=== PATIENT | male | born 1960 | race Caucasian/White ===

== ENCOUNTER → 2016-06-29 | Outpatient (CLI) | payer OTHER | LOC: BMCIMAGING 17:02 | PROVIDERS: ATTEND Internal Medicine | DX: J40 Bronchitis, not specified as acute or chronic (principal) ==

== ENCOUNTER → 2016-06-30 | Outpatient (CLI) | payer OTHER ==
[~2016-06-30] MED LIST: IOPAMIDOL (ISOVUE 370) 100 ML BTL IV ONE
== END ==
LOC: FIMAGING 14:54
PROVIDERS: ATTEND Internal Medicine
DX: J98.4 Other disorders of lung (principal); E04.1 Nontoxic single thyroid nodule; I25.10 Atherosclerotic heart disease of native coronary artery without angina pectoris
CPT/HCPCS: Q9967

== ENCOUNTER 2016-07-05 12:58 | Emergency (ER) | payer OTHER ==
[2016-07-05] MEDS ORDERED: NS 500 ML IV ONE (13:14)
--- NOTE | 2016-07-05 13:31 | EDPHY ---
H & P Stated Complaint: SOB, l neck pain HPI/ROS: CHIEF COMPLAINT: Shortness of breath HISTORY OF PRESENT ILLNESS: Patient complains of sudden onset of shortness of breath and lightheadedness. This happened this morning while standing outside. He just pain for a walk but no visitors exertion. It has been constant. He then noted of pain on the left side of his neck that developed. He felt that the pain in the neck was musculoskeletal as it has been ongoing lately. He has had no chest pain. He has been dizzy but no sensation of spinning. No change of symptoms with change of position of head or neck. No vomiting. No actual syncope. Went to urgent care and they sent him here by ambulance. He seen at time of arrival. No abnormalities on the pre-hospital 12 lead. No other associated complaints or modifying factors. Of note he does have a recent diagnosis of pneumonia on Tuesday and he does have polycythemia vera REVIEW OF SYSTEMS: Ten systems reviewed and are negative unless otherwise noted in the HPI PERTINENT MEDICAL HISTORY: Polycythemia vera, recent CAP diagnosis on augmentin EXAMINATION General Appearance: Alert, no distress Head: normocephalic, atraumatic Eyes: Pupils equal and round, no conjunctival pallor or injection ENT, Mouth: Mucous membranes moist. Uvula midline pain erythema edema. Neck: Normal inspection, supple, non-tender Respiratory: Lungs are clear to auscultation. No wheezing, rhonchi or crackles. Cardiovascular: Regular rate and rhythm. No murmur. Pulses intact distally. Gastrointestinal: Abdomen is soft and nontender Back: non-tender, no bony abnormalities Neurological: GCS 15. A&O, nonfocal, normal gait, normal steady gait Skin: Warm and dry, no rash Extremities: Nontender, no pedal edema Psychiatric: Mood and affect normal DIFFERENTIAL DIAGNOSES: Including but not limited to PE, ACS, heart failure, aortic stenosis, bronchitis , near syncope, pneumonia MDM: 1:15 p.m. Shortness of breath and near syncope. No chest pain of any kind. Awake and alert in no acute distress. Vital signs are stable. EKG, chest x-ray, laboratory studies are all pending. 1:30 p.m. I have re-evaluated the patient. He is resting comfortably in no acute distress. Labs, I EKG, chest x-ray are still pending. 2:15 p.m. Chest x-ray is clear and shows resolution pneumonia. Laboratory studies are normal including a negative troponin and BNP. D-dimer is negative. I have discussed the case with Dr. Godoy. He recommends stat Echocardiogram. He will evaluate the patient in the emergency department. 4:00 p.m. Patient has just finished his echocardiogram. Results are still pending. He is resting comfortably with no complaints of any kind at this time. 4:45 p.m. Echo returned as no acute finding. Normal ejection fraction. Normal valvular function. I discussed this with the patient. I have also discussed case with Dr. Godoy. He recommends a repeat troponin and the patient may be discharged home. 5:05 p.m. I discussed this with the patient. He agrees to stay for 2nd troponin. Second troponin has been drawn and then he will be discharged home if this is negative. SUPERVISION: Patient was evaluated in conjunction with the supervising physician. Please see their note for details. Source: Patient, Family, EMS Exam Limitations: No limitations - Personal History Current Tetanus/Diphtheria Vaccine: Yes Current Tetanus Diphtheria and Acellular Pertussis (TDAP): Yes - Medical/Surgical History Hx Asthma: No Hx Chronic Respiratory Disease: No Hx Diabetes: No Hx Cardiac Disease: Yes Hx Renal Disease: No Hx Cirrhosis: No Hx Alcoholism: No Hx HIV/AIDS: No Hx Splenectomy or Spleen Trauma: No Other PMH: Polycytepenia, ADD, HTN, PNA - Social History Smoking Status: Never smoked Constitutional: Initial Vital Signs Temperature (C) 97.3 F 07/05/16 12:58 Heart Rate 65 07/05/16 12:58 Respiratory Rate 14 07/05/16 12:58 Blood Pressure 148/91 H 07/05/16 12:58 O2 Sat (%) 99 07/05/16 12:58 O2 Delivery Mode Room Air Allergies/Adverse Reactions: clindamycin Allergy (Unverified 07/05/16 15:40) Home Medications: Medication Instructions Recorded AMOXICILLIN 07/05/16 Adderall 10 MG (*) 07/05/16 Amlodipine Besylate 07/05/16 Hydrea 500 mg (*) 07/05/16 Pantoprazole Sodium 07/05/16 Tamsulosin HCl 07/05/16 Medical Decision Making - Data Points Laboratory Results: Laboratory Results 07/05/16 13:40 07/05/16 13:40 Medications Given: Discontinued Medications Sodium Chloride (Ns) 500 mls @ 0 mls/hr IV ONCE ONE PRN Reason: As Directed Stop: 07/05/16 13:15 Last Admin: 07/05/16 14:08 Dose: 500 mls Departure - Departure Disposition: Home, Routine, Self-Care Clinical Impression: Near syncope, Dyspnea Condition: Good Instructions: Dyspnea (ED), Near Syncope (ED) Additional Instructions: Contact primary care physician in the morning. Continue with Cardiology referral. Return to ER for any chest pain, shortness of breath or syncope Referrals: Yassine Carmona MD [Primary Care Provider] - As per Instructions Hawk Del Angel MD [Medical Doctor] - As per Instructions
--- NOTE | 2016-07-05 13:39 | CPEKG ---
Heart Rate: 65 RR Interval: 923 P-R Interval: 168 QRSD Interval: 106 QT Interval: 432 QTC Interval: 450 P [place]: 67 QRS [place]: 13 T Wave [place]: 38 EKG Severity - NORMAL ECG - EKG Impression: SINUS RHYTHM Electronically Signed By: Favio Bustamante 08-Jul-2016 12:01:38
[2016-07-05 13:50] LABS: % IMMATURE GRANULYOCYTES 0.8 % (0.0-1.1); ADD DIFF? NO; ADD MORPH? YES; ADD SCAN? NO; ATYPICAL LYMPHOCYTE FLAG 10 (0-99); FRAGMENT RBC FLAG 20 (0-99); HEMOGLOBIN 14.1 g/dL (13.7-17.5); LEFT SHIFT FLG 0 (0-99); LIPEMIA HEMOLYSIS FLAG 80 (0-99); MEAN CELL HEMOGLOBIN 22.7 pg (27.9-34.1); MEAN CELL VOLUME 70.9 fL (81.5-99.8); MEAN PLATELET VOLUME 9.1 fL (8.7-11.7); PLATELET CLUMPS FLAG 0 (0-99); RED BLOOD CELL COUNT 6.21 10^6/uL (4.40-6.38)
[2016-07-05 13:54] LABS: PLATELET COUNT 857 10^3/uL (150-400); RED CELL DISTRIBUTION WIDTH 20.5 % (11.5-15.2)
[2016-07-05 14:07] LABS: INR 0.98 (0.83-1.16); PROTIME(PATIENT) 12.9 SEC (12.0-15.0)
[2016-07-05 14:08] LABS: APTT 29.4 SEC (23.0-38.0)
[2016-07-05 14:10] LABS: ANION GAP 13 mEq/L (8-16); CALCIUM 9.5 mg/dL (8.5-10.4); CARBON DIOXIDE 23 mEq/l (22-31); CHLORIDE 106 mEq/L (97-110); CREATININE 1.1 mg/dL (0.7-1.3); GLOMERULAR FILTRATION RATE > 60; GLUCOSE 84 mg/dL (70-100); POTASSIUM 4.1 mEq/L (3.5-5.2); SODIUM 142 mEq/L (134-144)
[2016-07-05 14:21] LABS: TROPONIN I < 0.012 ng/mL (0-0.034)
[2016-07-05 14:32] LABS: HYPOCHROMIA 2+; MICROCYTES 2+; PLATELET ESTIMATE INCREASED (ADEQ)
[2016-07-05 16:04] VITALS: TEMP 97.5; O2SAT 98
--- NOTE | 2016-07-05 16:47 | ECHO ---
[id number] + + [address] : : [place] [address] : : [phone] + + Adult Echocardiographic Report + --+ :Name: SKYLER MASSEY SStudy Date: 07/05/2016 03:41 PM : : Hospital Admission Number: [id number] Location: ER: :: 1960 Gender: Male : :Age: 56 yrs Race: WH : :Reason For Study: Dyspnea/near syncope : :History: Polycythemia : + --+ MMode/2D Measurements \T\ Calculations IVSd: 0.50 cm LVIDd: 4.6 cm FS: 52.6 % Ao root diam: LVPWd: 0.57 cm LVIDs: 2.2 cm EDV(Teich): 3.8 cm 99.3 ml LA dimension: ESV(Teich): 3.6 cm 16.2 ml EF(Teich): 83.7 % LVLd ap4: 8.6 cm SV(MOD-sp4): EDV(MOD-sp4): 63.0 ml 92.0 ml LVLs ap4: 7.1 cm ESV(MOD-sp4): 29.0 ml EF(MOD-sp4): 68.5 % Normal Measurement Values: + + :LVIDd (3.5-5.7cm) IVSd (0.6-1.1cm) LVPWd (0.6-1.1cm) Aortic Root (2.0-3.7cm)Left Atrium (1.5-4.0cm): :LV Vol(d) (76-115ml) LV Vol(s) (29-48ml) Ejec Fraction (50-65%)PV [place] (0.6- 1.2m/s) TV [place] (0.4-1.0m/s) : :MV E [place] (0.8-1.0m/s)MV A [place] (0.3-1.0m/s)LVOT [place] (0.7-1.2m/s) Asc Ao [place] ( 0.9-1.8m/s) : + + Doppler Measurements \T\ Calculations MV E max everette: 65.2 cm/sec Ao V2 max: 122.0 cm/sec MV A max everette: 78.0 cm/sec Ao max P.0 mmHg MV E/A: 0.84 Left Ventricle The left ventricle is normal in size. There is normal left ventricular wall thickness. Left ventricular systolic function is normal. Ejection Fraction = 70-75%. There is Doppler evidence for diastolic dysfunction. No regional wall motion abnormalities noted. Right Ventricle The right ventricle is normal in size and function. Atria The left atrial size is normal. Right atrial size is normal. The interatrial septum is intact with no evidence for an atrial septal defect. Mitral Valve The mitral valve is normal in structure and function. There is no evidence of mitral valve prolapse. There is no mitral valve stenosis. Tricuspid Valve Normal tricuspid valve. There is trace tricuspid regurgitation. Aortic Valve The aortic valve is trileaflet. The aortic valve opens well. Mild Aortic Valve Calcification. There is no aortic stenosis. Trace aortic regurgitation. Pulmonic Valve The pulmonic valve is normal in structure and function. There is no pulmonic valvular regurgitation. Great Vessels The aortic root is normal size. Pericardium/Pleural There is no pericardial effusion. Conclusion A complete two-dimensional transthoracic echocardiogram was performed (2D, M-mode, Doppler and color flow Doppler). Left ventricular systolic function is normal. Ejection Fraction = 70-75%. There is Doppler evidence for diastolic dysfunction. Normal wall motion. Mild aortic sclerosis. Trace aortic regurgitation. There is trace tricuspid regurgitation. Final Reading Physician: Benjamin Watkins signed on 07/05/2016 04:45 PM Ordering Physician: Travis Mora Performed By: Birdie Lin, CS
[2016-07-05 17:56] VITALS: BP 124/78; PULSE 64; RESP 16
== END 2016-07-05 17:56 | disposition home or self-care (01) ==
LOC: EDUNIT#
DX: R06.00 Dyspnea, unspecified (principal); R55 Syncope and collapse; I10 Essential (primary) hypertension

== ENCOUNTER → 2016-07-16 | Outpatient (CLI) | payer OTHER | LOC: BMCIMAGING 15:11 | PROVIDERS: ATTEND Internal Medicine Endocrinology, Diabetes & Metabolism | DX: E04.1 Nontoxic single thyroid nodule (principal) | CPT/HCPCS: 76536-PO ==

== ENCOUNTER 2016-09-15 13:15 | Day surgery (SDC) | payer OTHER ==
[2016-09-15] MEDS ORDERED: ceFAZolin 2 GM/DEXTROSE 100 ML IV ONE (13:46)
[2016-09-15] MEDS ORDERED: OXYMETAZOLINE 30 ML NASAL SPRAY ONE (14:05)
[2016-09-15] MEDS ORDERED: LIDOCAINE 1% 2 ML INJ ID PRN (14:06)
[2016-09-15] MEDS ORDERED: LR 1,000 ML IV ONE (14:06)
[2016-09-15] MEDS ORDERED: MIDAZOLAM 2 MG/2 ML VIAL IVP ONE (14:56)
--- NOTE | 2016-09-15 15:00 | PDANEPAE ---
ANE History of Present Illness NECK MASS, S/F DL AND NECK BIOPSY ANE Past Medical History - Cardiovascular History Hx Hypertension: Yes Hx Arrhythmias: No Hx Chest Pain: No Hx Coronary Artery / Peripheral Vascular Disease: No Hx CHF / Valvular Disease: No Hx Palpitations: No Cardiovascular History Comment: on Chol Rx x 1 mo. Stress test and 30 day heart monitor done. Polycythemia - Pulmonary History Hx COPD: No Hx Asthma/Reactive Airway Disease: No Hx Recent Upper Respiratory Infection: No Hx Oxygen in Use at Home: No Hx Sleep Apnea: Yes Sleep Apnea Screening Result - Last Documented: Positive Pulmonary History Comment: recent pneumonia late spring-expectorated bloody sputum. Dx w/MACIEL if supine-sleeps w/2 tennis ball/pack at his back. - Neurologic History Hx Cerebrovascular Accident: No Hx Seizures: No Hx Dementia: No - Endocrine History Hx Diabetes: No Endocrine History Comment: polycythemia vera, hydroxyurea treatment - Renal History Hx Renal Disorders: Yes Renal History Comment: takes tamsulosin - Liver History Hx Hepatic Disorders: No - Neurological & Psychiatric Hx Hx Neurological and Psychiatric Disorders: Yes Neurological / Psychiatric History Comment: ADD- on Rx - Cancer History Cancer History Comment: polycythemia tx w/Hydroxyurea - Congenital Disorder History Hx Congenital Disorders: No - GI History Hx Gastrointestinal Disorders: Yes Gastrointestinal History Comment: GERD - Other Health History Other Health History: V.C. and neck (thyroid) mass - Chronic Pain History Chronic Pain: No - Surgical History Prior Surgeries: inguinal hernia repair age 14. repair of bicep tendon 2014 ANE Review of Systems - Exercise capacity METS (RN): 4 METS ANE Patient History - Allergies Allergies/Adverse Reactions: clindamycin Allergy (Verified 08/30/16 13:54) Rash sulfite Allergy (Verified 08/30/16 13:55) Other-Enter Comments - Home Medications Home Medications: Adderall 10 MG (*) 07/05/16 [Last Taken 09/15/16 05:45] Amlodipine Besylate 07/05/16 [Last Taken 09/15/16 05:45] Hydrea 500 mg (*) 07/05/16 [Last Taken 09/14/16] Pantoprazole Sodium 07/05/16 [Last Taken 09/15/16 05:45] Tamsulosin HCl 07/05/16 [Last Taken 09/15/16 05:45] Aspirin 81mg (*) 08/30/16 [Last Taken 09/10/16] - NPO status NPO Since - Liquids (Date): 09/15/16 NPO Since - Liquids (Time): 08:00 (coffee black at 0830) NPO Since - Solids (Date): 09/14/16 NPO Since - Solids (Time): 21:00 - Anes Hx Anes Hx: no prior problems - Smoking Hx Smoking Status: Never smoked - Alcohol Use Alcohol Use: Rarely ANE Labs/Vital Signs - Vital Signs Blood Pressure: 131/96 Heart Rate: 52 Respiratory Rate: 18 O2 Sat (%): 99 Height: 175.26 cm Weight: 81.647 kg ANE Physical Exam - Airway Neck exam: FROM Mallampati Score: Class 1 Mouth exam: normal dental/mouth exam - Pulmonary Pulmonary: no respiratory distress - Cardiovascular Cardiovascular: regular rate and rhythym - ASA Status ASA Status: II ANE Anesthesia Plan Anesthesia Plan: general endotracheal anesthesia (R/B/A explained and agrees to proceed)
--- NOTE | 2016-09-15 15:21 | PDGENHP ---
History & Physical Chief Complaint: Vocal cord mass, Left neck mass History of Present Illness: Cord mass found on endoscopy. Neck mass found incidentally on CT angio chest and U/S neck confirmed findings. Pertinent Past, Social, Family History: PMH - CAD, hyperlipidemia, HTN, Polycythemia treated with hydroxyurea, MACIEL Relevant Physical Exam: A&O, NAD. OP clear. Neck unremarkable without palpable mass. CN 2-12 grossly intact Cardiorespiratory Assessment: CTA. Assessment: Appropriate for OR neck mass biopsy and vocal cord biopsy.
[2016-09-15] MEDS ORDERED: REMIFENTANIL HCL 1 MG VIAL ONE (15:25)
[2016-09-15] MEDS ORDERED: fentaNYL 100 MCG/2 ML INJ ONE (15:25)
[2016-09-15] MEDS ORDERED: PROPOFOL/EMULSION 500 MG/50 ML BOTTLE IV ONE (15:26)
[2016-09-15] MEDS ORDERED: LIDOCAINE 2% 100 MG/5 ML SYR ONE (15:28)
[2016-09-15] MEDS ORDERED: LIDOCAINE HCL 160 MG/4 ML LTA KIT TP ONE (15:28)
[2016-09-15] MEDS ORDERED: DEXAMETHASONE 4 MG/ML VIAL ONE (15:28)
[2016-09-15] MEDS ORDERED: ONDANSETRON 4 MG/2 ML VIAL ONE (15:28)
[2016-09-15] MEDS ORDERED: PHENYLEPHRINE HCL 100 MCG/ML SYR ONE ×2 (15:42→16:26)
[2016-09-15] MEDS ORDERED: LIDOCAINE 1% 300 MG/30 ML SDV ONE (15:47)
[2016-09-15] MEDS ORDERED: LIDO/EPI 1% **Not for Epidural 20 ML MDV ONE (15:47)
[2016-09-15] MEDS ORDERED: epHEDrine SULFATE 10 MG/ML SYR ONE (16:35)
[2016-09-15] MEDS ORDERED: PROMETHAZINE HCL 25 MG/ML INJ IVP PRN (16:48)
[2016-09-15] MEDS ORDERED: ONDANSETRON 4 MG/2 ML VIAL IVP PRN (16:48)
[2016-09-15] MEDS ORDERED: LR 500 ML IV PRN (16:48)
[2016-09-15] MEDS ORDERED: METOCLOPRAMIDE 10 MG/2 ML VIAL IVP PRN (16:48)
[2016-09-15] MEDS ORDERED: ACETAMINOPHEN 500 MG TAB PO PRN (16:48)
[2016-09-15] MEDS ORDERED: HYDROCODONE/APAP 5/325 TAB PO PRN (16:48)
[2016-09-15] MEDS ORDERED: ALBUTEROL 3 ML DEYVIAL IH PRN (16:48)
[2016-09-15] MEDS ORDERED: OXYCODONE/APAP 5/325 TAB PO PRN (16:48)
[2016-09-15] MEDS ORDERED: NALOXONE HCL 0.4 MG/ML INJ IVP PRN (16:48)
[2016-09-15] MEDS ORDERED: MEPERIDINE 25 MG/ML SYR IVP PRN (16:48)
[2016-09-15] MEDS ORDERED: DEXAMETHASONE 4 MG/ML VIAL IVP PRN (16:48)
[2016-09-15] MEDS ORDERED: LABETALOL HCL 50 MG/10 ML SYR IVP PRN (16:48)
[2016-09-15] MEDS ORDERED: fentaNYL 100 MCG/2 ML INJ IVP PRN ×2 (16:48)
--- NOTE | 2016-09-15 17:06 | POSTOPPROG ---
Post Op Note Date of Operation: 09/15/16 Surgeon: Torrey Elias Anesthesiologist: Arnol Anesthesia: GET(General Endotracheal) Pre-op Diagnosis: L vocal fold mass, L paratracheal neck mass Post-op Diagnosis: L vocal fold mass, L paratracheal neck mass Indication: L vocal fold mass, L paratracheal neck mass Procedure: Direct microlaryngoscopy, excisional biopsy L paratracheal neck mass Findings: Normal vocal folds. 3cm L paratracheal mass Inf/Abcess present in the surg proc area at time of surgery?: No Depth: Deep Incisional (Fascial) EBL: Minimal Complications: NONE Specimen(s): Left paratracheal neck mass.
[2016-09-15 17:26] VITALS: BP 119/74; PULSE 64; RESP 15; TEMP 96.8
[2016-09-15 17:31] VITALS: O2SAT 96
--- NOTE | 2016-10-05 04:55 | GOP ---
[f rep st] OPERATIVE REPORT DATE OF OPERATION: 09/15/2016 SURGEON: Torrey Elias MD ANESTHESIA: General. PREOPERATIVE DIAGNOSIS: Left vocal fold mass, left paratracheal neck mass. POSTOPERATIVE DIAGNOSIS: Left vocal fold mass, left paratracheal neck mass. PROCEDURE PERFORMED: Direct microlaryngoscopy, excisional biopsy of left paratracheal mass. FINDINGS: A 3 cm lobulated left paratracheal mass. No evidence of mass on direct microlaryngoscopy . SPECIMENS: Left paratracheal mass. ESTIMATED BLOOD LOSS: Minimal. 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 During workup for lung pathology, he was incidentally found to have a left paratracheal mass on CT scan. Given his history and findings, he was determined to be an appropriate candidate for the abo ve-stated procedures. The risks, benefits, and alternatives to the procedures were explained at [facility] to the patient who stated he understood and wished to go forward with the procedures. DESCRIPTION OF PROCEDURE: Patient was brought to the operating room by Anesthesiology and placed on the operating table. Once the appropriate level of anesthesia was achieved, the operating table wa s turned 90 degrees, and the patient was prepped and draped for the direct laryngoscopy microlaryngo scopy. A Superior tooth guard was placed. The oral cavity and posterior oropharynx were palpated f or mass. None was found. A Dedo laryngoscope was then placed atraumatically into the oral cavity. Visual inspection of the posterior oral cavity and oropharynx were completed. The laryngoscope was then passed into the hypopharynx for good visualization of the larynx. The postcricoid region was visualized, as well as structures of the larynx and hypopharynx that included the base of tongue, va llecula, bilateral piriform sinuses, epiglottis, aryepiglottic fold, true and false vocal folds. Once the area of concern of the left true vocal fold was localized, the laryngoscope was suspended w ith a Lewy bar on a Heath stand. The binocular operating microscope was brought onto the surgical fi eld. Complete inspection of bilateral vocal fold was completed using the microscope. False vocal f olds were also inspected. As noted above, no lesion was found. Mucosa appeared smooth and healthy. The laryngoscope was unsuspended and withdrawn. The tooth guard was removed. The patient was und raped and then re-prepped and draped for the neck excision. 1% lidocaine with 1:100,000 epinephrine was injected into the intended incision site that was 2 fing erbreadths above the manubrium. The incision was 3 cm and placed with an a neck crease. This was j ust to the left of midline. Incision was created with a 15 blade. And dissection continued with Sudhakar vie electrocautery through the platysma. Subplatysmal flaps were elevated both superiorly and infer iorly. The strap muscles, including the sternocleidomastoid, were localized and lateralize to the l eft. Incision continued vertically along the midline until the inferior thyroid gland lobe was enco untered. Dissection continued inferiorly along the left lateral aspect of the trachea. Dissection continued slightly into the mediastinum. The mass was then localized. As the capsule was encounter ed, a pericapsular dissection was completed. There were only mild vascular contributors to the mass . Dissection continued with clean planes and in a pericapsular fashion. It was delivered and ball and sent for pathology. The surgical bed was irrigated with copious normal saline. The surgical bed was inspected for bleed ing; none was found. The strap muscles were brought back to midline and reapproximated using a sing le [id number] 3-0 chromic suture. The platysma was then reapproximated using interrupted deep 3-0 chromic sutures. The subcutaneous tissues were reapproximated using interrupted deep 3-0 chromi c sutures. Skin was reapproximated with Dermabond. The patient tolerated the procedure well and was extubated in the operating room prior to being souza sferred in good condition to the postanesthesia care unit. COMPLICATIONS: None. /[id number]/MODL
== END 2016-09-15 18:12 | disposition home or self-care (01) ==
LOC: FSGY 13:15
PROVIDERS: ATTEND Otolaryngology
DX: D34 Benign neoplasm of thyroid gland (principal); I25.10 Atherosclerotic heart disease of native coronary artery without angina pectoris; E78.5 Hyperlipidemia, unspecified; I10 Essential (primary) hypertension; G47.33 Obstructive sleep apnea (adult) (pediatric)
CPT/HCPCS: J0171; J0690; J1100; J2001; J2250; J2370; J2405; J2704; J3010

== ENCOUNTER → 2016-10-29 | Outpatient (CLI) | payer OTHER | LOC: BMCIMAGING 16:29 | PROVIDERS: ATTEND Internal Medicine | DX: R91.8 Other nonspecific abnormal finding of lung field (principal) ==

== ENCOUNTER → 2017-05-05 | Outpatient (CLI) | payer OTHER | LOC: BMCIMAGING 08:07 | PROVIDERS: ATTEND Internal Medicine | DX: R05 Cough (principal) ==

== ENCOUNTER 2017-07-18 10:45 | Emergency (ER) | payer OTHER ==
--- NOTE | 2017-07-18 11:09 | CPEKG ---
Heart Rate: 56 RR Interval: 1071 P-R Interval: 180 QRSD Interval: 104 QT Interval: 428 QTC Interval: 414 P [place]: 59 QRS [place]: -8 T Wave [place]: 32 EKG Severity - NORMAL ECG - EKG Impression: SINUS RHYTHM Electronically Signed By: Pierre Pavon 18-Jul-2017 14:26:31
--- NOTE | 2017-07-18 11:39 | EDPHY ---
H & P Stated Complaint: cp Time Seen by Provider: 07/18/17 11:30 HPI/ROS: CHIEF COMPLAINT: Chest pain HISTORY OF PRESENT ILLNESS: The patient presents to ED department with 2 days of vague atypical nonexertional chest pain. The patient has a history of polycythemia vera currently treated with hydroxyurea. The patient has a history of coronary calcifications but has had a negative nuclear stress test within the past year. He denies any history of exertional chest pain. The patient is currently asymptomatic. He denies asymmetric calf pain or swelling. The patient denies pleuritic chest pain. Given the patient's concern about his known prior coronary calcifications he came to the ED for evaluation today. REVIEW OF SYSTEMS: A comprehensive 10 point review of systems is otherwise negative aside from elements mentioned in the history of present illness. Source: Patient - Personal History Current Tetanus/Diphtheria Vaccine: Yes Current Tetanus Diphtheria and Acellular Pertussis (TDAP): Yes - Medical/Surgical History Hx Asthma: No Hx Chronic Respiratory Disease: No Hx Diabetes: No Hx Cardiac Disease: Yes Hx Renal Disease: No Hx Cirrhosis: No Hx Alcoholism: No Hx HIV/AIDS: No Hx Splenectomy or Spleen Trauma: No Other PMH: Polycytepenia, ADD, HTN, PNA - Social History Smoking Status: Never smoked - Physical Exam Exam: General Appearance: Alert, no distress Eyes: Pupils equal and round no pallor or injection ENT, Mouth: Mucous membranes moist Respiratory: There are no retractions, lungs are clear to auscultation Cardiovascular: Regular rate and rhythm Gastrointestinal: Abdomen is soft and nontender, no masses, bowel sounds normal Neurological: A&O, normal motor function, normal sensory exam, normal cranial nerves Skin: Warm and dry, no rashes Musculoskeletal: Neck is supple nontender Extremities: symmetrical, full range of motion Constitutional: Initial Vital Signs Temperature (C) 36.3 C 07/18/17 10:58 Heart Rate 61 07/18/17 10:58 Respiratory Rate 16 07/18/17 10:58 Blood Pressure 157/91 H 07/18/17 10:58 O2 Sat (%) 99 07/18/17 10:58 O2 Delivery Mode Room Air Allergies/Adverse Reactions: clindamycin Allergy (Verified 07/18/17 10:56) Rash sulfite Allergy (Verified 07/18/17 10:56) Other-Enter Comments Home Medications: Medication Instructions Recorded Adderall 10 MG (*) 07/05/16 Amlodipine Besylate 07/05/16 Hydrea 500 mg (*) 07/05/16 Pantoprazole Sodium 07/05/16 Tamsulosin HCl 07/05/16 Aspirin 81mg (*) 08/30/16 Albuterol 07/18/17 Atorvastatin Calcium 07/18/17 Medical Decision Making - Diagnostics EKG Interpretation: EKG: Complete interpretation has been separately recorded in the [employer] archive. Summary impression: Sinus rhythm, rate 56 Imaging Results: Imaging Impressions Chest X-Ray 07/18/17 11:06 Impression: May 05, 2017, July 05, 2016 Findings: Lungs clear. Heart normal. No pneumothorax or pleural effusion. There is no mass or adenopathy. The skeleton is unremarkable. There is chronic degenerative spurring in the mid and lower thoracic spine. EKG leads overlie the chest. Impression: No source for chest pain identified. ED Course/Re-evaluation: The patient presents to the ED with a 2 day history of atypical chest pain. The patient's EKG demonstrates no evidence of ischemia and his troponin is normal. The patient does have a history of coronary calcifications and does understand that we cannot fully exclude coronary artery disease. Patient was offered admission hospital for observation versus follow-up with Cardiology. He prefers to follow up with Cardiology at this point time. The patient does understand return to the ED immediately for worsening chest pain, shortness of breath or other concerns. The patient underwent serial examinations in the ED over a 2 hr period. At 1: 00 p.m. He continues to be asymptomatic. The patient has seen Dr. Del Angel from Cardiology in the past. He has been given the contact number for [facility] at his request. Differential Diagnosis: Differential diagnosis considered includes gastroesophageal reflux disease, coronary artery disease, myocardial infarction, dehydration - Data Points Laboratory Results: Laboratory Results 07/18/17 11:32 07/18/17 11:32 07/18/17 07/18/17 07/18/17 11:37 11:32 11:32 WBC 7.47 10^3/uL 10^3/uL (3.80-9.50) RBC 5.70 10^6/uL 10^6/uL (4.40-6.38) Hgb 15.4 g/dL g/dL (13.7-17.5) Hct 47.2 % % (40.0-51.0) MCV 82.8 fL fL (81.5-99.8) MCH 27.0 pg L pg (27.9-34.1) MCHC 32.6 g/dL g/dL (32.4-36.7) RDW 14.5 % % (11.5-15.2) Plt Count 372 10^3/uL 10^3/uL (150-400) MPV 9.4 fL fL (8.7-11.7) Neut % (Auto) 63.1 % % (39.3-74.2) Lymph % (Auto) 24.9 % % (15.0-45.0) Sully % (Auto) 9.4 % % (4.5-13.0) Eos % (Auto) 1.6 % % (0.6-7.6) Baso % (Auto) 0.7 % % (0.3-1.7) Nucleat RBC Rel Count 0.0 % % (0.0-0.2) Absolute Neuts (auto) 4.72 10^3/uL 10^3/uL (1.70-6.50) Absolute Lymphs (auto) 1.86 10^3/uL 10^3/uL (1.00-3.00) Absolute Monos (auto) 0.70 10^3/uL 10^3/uL (0.30-0.80) Absolute Eos (auto) 0.12 10^3/uL 10^3/uL (0.03-0.40) Absolute Basos (auto) 0.05 10^3/uL 10^3/uL (0.02-0.10) Absolute Nucleated RBC 0.00 10^3/uL 10^3/uL (0-0.01) Immature Gran % 0.3 % % (0.0-1.1) Immature Gran # 0.02 10^3/uL 10^3/uL (0.00-0.10) Sodium 143 mEq/L mEq/L (135-145) Potassium 4.2 mEq/L mEq/L (3.3-5.0) Chloride 103 mEq/L mEq/L (97-110) Carbon Dioxide 25 mEq/l mEq/l (22-31) Anion Gap 15 mEq/L mEq/L (8-16) BUN 17 mg/dL mg/dL (7-23) Creatinine 0.9 mg/dL mg/dL (0.7-1.3) Estimated GFR > 60 Glucose 91 mg/dL mg/dL (70-100) Calcium 9.5 mg/dL mg/dL (8.5-10.4) POC Troponin I 0.00 ng/mL ng/mL (0.00-0.08) Point of Care Test Results: Chemistry 07/18/17 11:37 POC Troponin I 0.00 ng/mL ng/mL (0.00-0.08) Departure - Departure Disposition: Home, Routine, Self-Care Clinical Impression: Chest pain Condition: Good Instructions: Chest Pain (ED) Additional Instructions: 1. Based upon the testing done in the Emergency Department today we see no evidence of a heart attack. 2. We are unable to fully exclude coronary artery disease based upon the testing available in the Emergency Department. 3. For this reason, we would like you to be seen by cardiology for consideration of additional testing within the next 3 days. 4. Please contact the merchandise associate you have been referred to schedule this appointment as soon as possible. Their offices are typically open from 8:30am- 5pm M-F. 5. Please return to the Emergency Department immediately for any recurrent chest pain, difficulty breathing or other concerns. Referrals: Francisca Gooden MD [Medical Doctor] - As per Instructions
[2017-07-18 11:45] LABS: PLATELET COUNT 372 10^3/uL (150-400)
[2017-07-18 13:27] VITALS: BP 138/88
== END 2017-07-18 13:28 | disposition home or self-care (01) ==
DX: R07.9 Chest pain, unspecified (principal); I10 Essential (primary) hypertension; Z79.82 Long term (current) use of aspirin
CPT/HCPCS: 84484-PO

== ENCOUNTER 2017-10-31 19:18 | Emergency (ER) | payer OTHER ==
--- NOTE | 2017-10-31 19:26 | EDPHY ---
H & P Time Seen by Provider: 10/31/17 19:22 HPI/ROS: CHIEF COMPLAINT: Presyncope HISTORY OF PRESENT ILLNESS: The patient presents to the ED with presyncope. The patient had a lipoma resected from his right flank at the outpatient surgery center today. This was complicated by a immediate postoperative hematoma which required further washout. The patient was sent home with a pressure dressing. This evening he developed increasing pain, lightheadedness and diaphoresis. He checked his blood pressure and it was 100/50 with a heart rate in the 60s prompting his visit to the emergency department. The patient does have a history of polycythemia and takes hydroxyurea for this condition. He does have thrombocytosis per his report. Patient reports that the blood loss was approximately 100 mL. He describes a lipoma approximately 15 cm by 8 cm in size which was excised. REVIEW OF SYSTEMS: A comprehensive 10 point review of systems is otherwise negative aside from elements mentioned in the history of present illness. Source: Patient Exam Limitations: No limitations - Medical/Surgical History Hx Asthma: No Hx Chronic Respiratory Disease: No Hx Diabetes: No Hx Cardiac Disease: Yes Hx Renal Disease: No Hx Cirrhosis: No Hx Alcoholism: No Hx HIV/AIDS: No Hx Splenectomy or Spleen Trauma: No Other PMH: Polycythemia, ADD, HTN, PNA - Family History Significant Family History: No pertinent family hx - Social History Smoking Status: Never smoked - Physical Exam Exam: General Appearance: Alert, diaphoretic Eyes: Pupils equal and round no pallor or injection ENT, Mouth: Mucous membranes moist Respiratory: There are no retractions, lungs are clear to auscultation Cardiovascular: Regular rate and rhythm Gastrointestinal: Abdomen is soft and nontender, no masses, bowel sounds normal Neurological: A&O, normal motor function, normal sensory exam, normal cranial nerves Skin: Pressure dressing applied to right flank. No obvious hemorrhage. Musculoskeletal: Neck is supple nontender Extremities: symmetrical, full range of motion Constitutional: Initial Vital Signs Temperature (C) 36.4 C 10/31/17 19:19 Heart Rate 71 10/31/17 19:19 Respiratory Rate 18 10/31/17 19:19 Blood Pressure 130/75 H 10/31/17 19:19 O2 Sat (%) 99 10/31/17 19:19 O2 Delivery Mode Room Air Allergies/Adverse Reactions: clindamycin Allergy (Verified 10/31/17 19:23) Rash sulfite Allergy (Verified 10/31/17 19:23) Other-Enter Comments Home Medications: Medication Instructions Recorded Adderall 10 MG (*) 07/05/16 Amlodipine Besylate 07/05/16 Hydrea 500 mg (*) 07/05/16 Pantoprazole Sodium 07/05/16 Tamsulosin HCl 07/05/16 Aspirin 81mg (*) 08/30/16 Albuterol 07/18/17 Atorvastatin Calcium 07/18/17 Medical Decision Making ED Course/Re-evaluation: The patient was noted to have no hypotension or tachycardia in the emergency department. He presents to the ED after a likely vasovagal episode at home. Examination of his surgical site demonstrates no active extravasation or subcutaneous hematoma. The patient had an IV established. He received 2 L of normal saline. He was placed on a equipment monitor phototypesetting throughout his stay in the emergency department and remained normotensive. I reviewed the patient's presentation with his surgeon Dr. Maher. The patient will be discharged home at this point time. He has been instructed to return to the ED for any bleeding in his dressing, the development of hematoma, increasing pain, lightheadedness or other concerns. Differential Diagnosis: Differential diagnosis considered includes postoperative hematoma, critical anemia, vasovagal episode, dehydration, hypovolemia - Data Points Laboratory Results: Laboratory Results 10/31/17 19:45 10/31/17 19:45 10/31/17 10/31/17 10/31/17 19:45 19:45 19:45 WBC 17.60 10^3/uL H 10^3/uL (3.80-9.50) RBC 4.56 10^6/uL 10^6/uL (4.40-6.38) Hgb 12.6 g/dL L g/dL (13.7-17.5) Hct 38.5 % L % (40.0-51.0) MCV 84.4 fL fL (81.5-99.8) MCH 27.6 pg L pg (27.9-34.1) MCHC 32.7 g/dL g/dL (32.4-36.7) RDW 13.9 % % (11.5-15.2) Plt Count 474 10^3/uL H 10^3/uL (150-400) MPV 9.0 fL fL (8.7-11.7) Neut % (Auto) 87.6 % H % (39.3-74.2) Lymph % (Auto) 5.6 % L % (15.0-45.0) [place] % (Auto) 5.5 % % (4.5-13.0) Eos % (Auto) 0.5 % L % (0.6-7.6) Baso % (Auto) 0.3 % % (0.3-1.7) Nucleat RBC Rel Count 0.0 % % (0.0-0.2) Absolute Neuts (auto) 15.43 10^3/uL H 10^3/uL (1.70-6.50) Absolute Lymphs (auto) 0.99 10^3/uL L 10^3/uL (1.00-3.00) Absolute Monos (auto) 0.96 10^3/uL H 10^3/uL (0.30-0.80) Absolute Eos (auto) 0.08 10^3/uL 10^3/uL (0.03-0.40) Absolute Basos (auto) 0.05 10^3/uL 10^3/uL (0.02-0.10) Absolute Nucleated RBC 0.00 10^3/uL 10^3/uL (0-0.01) Immature Gran % 0.5 % % (0.0-1.1) Immature Gran # 0.09 10^3/uL 10^3/uL (0.00-0.10) PT 13.6 SEC SEC (12.0-15.0) INR 1.02 (0.83-1.16) APTT 23.4 SEC SEC (23.0-38.0) Sodium 136 mEq/L mEq/L (135-145) Potassium 4.1 mEq/L mEq/L (3.3-5.0) Chloride 101 mEq/L mEq/L (97-110) Carbon Dioxide 26 mEq/l mEq/l (22-31) Anion Gap 9 mEq/L mEq/L (8-16) BUN 19 mg/dL mg/dL (7-23) Creatinine 1.0 mg/dL mg/dL (0.7-1.3) Estimated GFR > 60 Glucose 118 mg/dL H mg/dL (70-100) Calcium 8.9 mg/dL mg/dL (8.5-10.4) Medications Given: Discontinued Medications Sodium Chloride (Ns) 1,000 mls @ 0 mls/hr IV EDNOW ONE; Wide Open PRN Reason: Protocol Stop: 10/31/17 19:36 Last Admin: 10/31/17 19:52 Dose: 1,000 mls Sodium Chloride (Ns) 1,000 mls @ 0 mls/hr IV EDNOW ONE; Wide Open PRN Reason: Protocol Stop: 10/31/17 19:36 Last Admin: 10/31/17 19:52 Dose: 1,000 mls Departure - Departure Disposition: Home, Routine, Self-Care Clinical Impression: Vasovagal episode Condition: Good Instructions: Hypotension (ED) Additional Instructions: 1. Please follow up tomorrow as scheduled with Dr. Maher 2. Return to the ED for increasing pain, increasing abdominal swelling, lightheadedness, bleeding from your dressing or other concerns. Referrals: Yassine Carmona MD [Primary Care Provider] - As per Instructions
[2017-10-31] MEDS ORDERED: NS 1,000 ML IV ONE ×2 (19:35)
[2017-10-31 20:00] LABS: PLATELET COUNT 474 10^3/uL (150-400)
[2017-10-31 20:08] LABS: INR 1.02 (0.83-1.16); PROTIME(PATIENT) 13.6 SEC (12.0-15.0)
[2017-10-31 20:48] VITALS: BP 129/73
== END 2017-10-31 20:48 | disposition home or self-care (01) ==
DX: R55 Syncope and collapse (principal); I95.9 Hypotension, unspecified; D47.3 Essential (hemorrhagic) thrombocythemia; E86.9 Volume depletion, unspecified